=== PATIENT | female | born 1990 | race Caucasian/White ===

== ENCOUNTER 2016-11-04 14:01 | Emergency (ER) | payer MEDICAID ==
[~2016-11-04] VITALS: Ht 157.5 cm; Wt 81.0 kg
[2016-11-04 14:05] VITALS: Ht 157.5 cm; Wt 81.0 kg
[2016-11-04] MEDS ORDERED: NAPR-260 PO (14:38)
[2016-11-04] MEDS ORDERED: CYCL-319 PO (14:38)
[2016-11-04] MEDS ORDERED: HYDR-906 PO (14:38)
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
== END 2016-11-04 15:19 | disposition home or self-care (01) ==
LOC: FTE 14:01
DX: S19.9XXA Unspecified injury of neck, initial encounter (principal); S39.92XA Unspecified injury of lower back, initial encounter; V49.40XA Driver injured in collision with unspecified motor vehicles in traffic accident, initial encounter
CPT/HCPCS: 99284